=== PATIENT | female | born 1990 | race Two or more races ===

== ENCOUNTER 2016-08-20 21:44 | Emergency (ER) | payer MEDICAID ==
[2016-08-20] MEDS ORDERED: BUPIVACAINE 0.5% 10 ML SDV ONE (21:52)
[2016-08-20 21:55] VITALS: BP 101/97; PULSE 73; RESP 16; TEMP 97.9; O2SAT 95
--- NOTE | 2016-08-20 22:06 | EDPHY ---
H & P Chief Complaint Nursing Narrative: R index finger tip swelling/redness/pain x 1 day. no injury. Time Seen by Provider: 08/20/16 21:49 HPI/ROS: Chief complaint: Right finger pain and swelling HPI: 26-year-old female presenting with 1 day of pain and swelling at the base of her nail on her right index finger. No fevers or chills. No history of the same. ROS: 10 point Review of Systems is negative except as noted in the HPI. Physical exam: General: Awake alert no acute distress Right hand: She has got swelling and erythema on the ulnar aspect of her right index finger nail bed consistent with paronychia. There is no proximal erythema or tenderness. There is no pain along the flexor tendon sheath. Full range of motion without pain. Sensations intact. - Personal History LMP (Females 10-55): 8-14 Days Ago - Medical/Surgical History Hx Asthma: No Hx Chronic Respiratory Disease: No Hx Diabetes: No Hx Cardiac Disease: No Hx Renal Disease: No Hx Cirrhosis: No Hx Alcoholism: No Hx HIV/AIDS: No Hx Splenectomy or Spleen Trauma: No Other PMH: breast augmentation, oral surgery - Social History Smoking Status: Never smoked Constitutional: Initial Vital Signs Temperature (C) 36.6 C 08/20/16 21:53 Heart Rate 73 08/20/16 21:53 Respiratory Rate 16 08/20/16 21:53 Blood Pressure 101/97 H 08/20/16 21:53 O2 Sat (%) 95 08/20/16 21:53 O2 Delivery Mode Room Air Allergies/Adverse Reactions: No Known Allergies Allergy (Verified 08/20/16 21:51) Home Medications: Medication Instructions Recorded NK [No Known Home Meds] 08/20/16 Medical Decision Making Procedures: Procedure: Digital nerve block, indication is digit anesthesia for procedure. Patient was prepped with chlorhexidine Skin prep. 0.5% bupivacaine was infiltrated in the medial in lateral aspects for with a dorsal approach at the base of the proximal phalanx with blockage of both dorsal and volar nerves. Total of 1 mL was infiltrated. There were no complications. Procedure was performed by myself. Procedure: Paronychia drainage. The patient's paronychia was located on the right index finger. I obtained verbal consent from the patient to drain the abscess who was informed about the possibility of bleeding and pain. The abscess was incised with scissors and blunt dissection and a small amount of purulent drainage was expressed. The patient tolerated the procedure well. The procedure was performed by myself. Departure - Departure Disposition: Home, Routine, Self-Care Clinical Impression: Paronychia Condition: Good Instructions: Paronychia (ED) Additional Instructions: Warm soaks of the affected finger twice a day. Keep the area covered and clean. Follow up with primary care physician in 4-5 days for re-evaluation. Return Urgent Care for increasing pain, or spreading redness, fevers, chills, or any other concerns. Referrals: NONE *PRIMARY CARE P,. [Primary Care Provider] - As per Instructions [facility] [Outside] - As per Instructions
--- NOTE | 2016-08-20 22:21 | UCPHY ---
H & P Patient Type: Established Chief Complaint Nursing Narrative: R index finger tip swelling/redness/pain x 1 day. no injury. Time Seen by Provider: 08/20/16 21:49 HPI/ROS: Chief complaint: Right finger pain and swelling HPI: 26-year-old female presenting with 1 day of pain and swelling at the base of her nail on her right index finger. No fevers or chills. No history of the same. ROS: 10 point Review of Systems is negative except as noted in the HPI. Physical exam: General: Awake alert no acute distress Right hand: She has got swelling and erythema on the ulnar aspect of her right index finger nail bed consistent with paronychia. There is no proximal erythema or tenderness. There is no pain along the flexor tendon sheath. Full range of motion without pain. Sensations intact. - Personal History LMP (Females 10-55): 8-14 Days Ago - Medical/Surgical History Hx Asthma: No Hx Chronic Respiratory Disease: No Hx Diabetes: No Hx Cardiac Disease: No Hx Renal Disease: No Hx Cirrhosis: No Hx Alcoholism: No Hx HIV/AIDS: No Hx Splenectomy or Spleen Trauma: No Other PMH: breast augmentation, oral surgery - Family History Significant Family History: No pertinent family hx - Social History Smoking Status: Never smoked Constitutional: Initial Vital Signs Temperature (C) 36.6 C 08/20/16 21:53 Heart Rate 73 08/20/16 21:53 Respiratory Rate 16 08/20/16 21:53 Blood Pressure 101/97 H 08/20/16 21:53 O2 Sat (%) 95 08/20/16 21:53 O2 Delivery Mode Room Air Allergies/Adverse Reactions: No Known Allergies Allergy (Verified 08/20/16 21:51) Home Medications: Medication Instructions Recorded NK [No Known Home Meds] 08/20/16 Medical Decision Making Procedures: Procedure: Digital nerve block, indication is digit anesthesia for procedure. Patient was prepped with chlorhexidine Skin prep. 0.5% bupivacaine was infiltrated in the medial in lateral aspects for with a dorsal approach at the base of the proximal phalanx with blockage of both dorsal and volar nerves. Total of 1 mL was infiltrated. There were no complications. Procedure was performed by myself. Procedure: Paronychia drainage. The patient's paronychia was located on the right index finger. I obtained verbal consent from the patient to drain the abscess who was informed about the possibility of bleeding and pain. The abscess was incised with scissors and blunt dissection and a small amount of purulent drainage was expressed. The patient tolerated the procedure well. The procedure was performed by myself. Departure - Departure Disposition: Home, Routine, Self-Care Clinical Impression: Paronychia Condition: Good Instructions: Paronychia (ED) Additional Instructions: Warm soaks of the affected finger twice a day. Keep the area covered and clean. Follow up with primary care physician in 4-5 days for re-evaluation. Return Urgent Care for increasing pain, or spreading redness, fevers, chills, or any other concerns. Referrals: [facility] [Outside] - As per Instructions NONE *PRIMARY CARE P,. [Primary Care Provider] - As per Instructions - PQRS PQRS Measurement: NA
== END 2016-08-20 22:37 | disposition home or self-care (01) ==
LOC: CED 21:44
DX: L03.011 Cellulitis of right finger (principal)
CPT/HCPCS: G0463-PO

== ENCOUNTER 2017-01-23 16:52 | Emergency (ER) | payer MEDICAID ==
[2017-01-23 17:06] VITALS: RESP 18; TEMP 98
[2017-01-23] MEDS ORDERED: METOCLOPRAMIDE 10 MG/2 ML VIAL IVP ONE (17:10)
[2017-01-23] MEDS ORDERED: NS 1,000 ML IV ONE (17:10)
--- NOTE | 2017-01-23 17:12 | EDPHY ---
H & P Stated Complaint: c/o N/V/MICHELLE since last pm. Time Seen by Provider: 01/23/17 16:56 HPI/ROS: CHIEF COMPLAINT: Nausea, vomiting, diarrhea headache History by patient HISTORY OF PRESENT ILLNESS: 26-year-old woman who is otherwise healthy presents complaining of 24 hours of nausea, vomiting and diarrhea. Patient states she has vomited at least 8 times. She has had 1 episode of watery, nonbloody diarrhea. She also complains of a bilateral headache behind her eyes which she feels is due to being dehydrated but states she also has a history of migraines but this does not feel severe as her usual migraines. Sometimes with her migraines she loses vision in her left eye. She denies any focal numbness or weakness. She denies any abdominal pain. She denies any fever. She denies any dysuria, urgency or frequency. She denies . REVIEW OF SYSTEMS: As in HPI, and all other systems reviewed and are negative Source: Patient - Personal History LMP (Females 10-55): Now Current Tetanus Diphtheria and Acellular Pertussis (TDAP): Yes - Medical/Surgical History Hx Asthma: No Hx Chronic Respiratory Disease: No Hx Diabetes: No Hx Cardiac Disease: No Hx Renal Disease: No Hx Cirrhosis: No Hx Alcoholism: No Hx HIV/AIDS: No Hx Splenectomy or Spleen Trauma: No Other PMH: breast augmentation, oral surgery - Social History Smoking Status: Never smoked - Physical Exam Exam: General Appearance: Alert, nontoxic-appearing. Eyes: Pupils equal and round no pallor or injection. ENT, Mouth: Mucous membranes moist. Respiratory: Normal, effort, lungs are clear to auscultation. No wheezes, rales or rhonchi. Cardiovascular: Regular rate and rhythm. S1, S2, no murmurs, gallops or rubs appreciated Gastrointestinal: Abdomen is soft and nontender, no masses, bowel sounds normal. Back: No CVA tenderness, no bony tenderness Neurological: Awake, alert and oriented x 3, no pronator drift, normal gait, no pronator drift Skin: Warm and dry, no rashes. Musculoskeletal: No deformities or tenderness. Extremitie:s full range of motion, no edema Psychiatric: Patient has normal affect, there is no agitation. Constitutional: Initial Vital Signs Temperature (C) 36.6 C 01/23/17 17:01 Heart Rate 78 01/23/17 17:01 Respiratory Rate 18 01/23/17 17:01 Blood Pressure 105/80 01/23/17 17:01 O2 Sat (%) 94 01/23/17 17:01 O2 Delivery Mode Room Air Allergies/Adverse Reactions: No Known Allergies Allergy (Verified 08/20/16 21:51) Home Medications: Medication Instructions Recorded NK [No Known Home Meds] 08/20/16 Medical Decision Making ED Course/Re-evaluation: [age] old woman presents with nausea, vomiting and diarrhea and headache. She has a benign exam and normal vital signs. She is afebrile there is no evidence of systemic toxicity. She was given a L of IV fluids along with Reglan and Benadryl. After the Reglan and she became very anxious and uncomfortable feeling. I suspect this is akisthetic reaction to the Reglan. She was given additional dose of Benadryl with some improvement. We discussed this and I have told her she should consider herself allergic to Reglan. Patient's labs were unremarkable and she was not . On re-evaluation she is improved. She is discharged home in stable condition. - Data Points Laboratory Results: Laboratory Results 01/23/17 17:10 01/23/17 17:10 01/23/17 01/23/17 01/23/17 17:10 17:10 17:10 WBC 2.94 10^3/uL L 10^3/uL (3.80-9.50) RBC 4.78 10^6/uL 10^6/uL (4.18-5.33) Hgb 14.7 g/dL g/dL (12.6-16.3) Hct 42.2 % % (38.0-47.0) MCV 88.3 fL fL (81.5-99.8) MCH 30.8 pg pg (27.9-34.1) MCHC 34.8 g/dL g/dL (32.4-36.7) RDW 12.4 % % (11.5-15.2) Plt Count 246 10^3/uL 10^3/uL (150-400) MPV 9.1 fL fL (8.7-11.7) Neut % (Auto) 51.7 % % (39.3-74.2) Lymph % (Auto) 31.3 % % (15.0-45.0) [place] % (Auto) 12.6 % % (4.5-13.0) Eos % (Auto) 3.4 % % (0.6-7.6) Baso % (Auto) 0.7 % % (0.3-1.7) Nucleat RBC Rel Count 0.0 % % (0.0-0.2) Absolute Neuts (auto) 1.52 10^3/uL L 10^3/uL (1.70-6.50) Absolute Lymphs (auto) 0.92 10^3/uL L 10^3/uL (1.00-3.00) Absolute Monos (auto) 0.37 10^3/uL 10^3/uL (0.30-0.80) Absolute Eos (auto) 0.10 10^3/uL 10^3/uL (0.03-0.40) Absolute Basos (auto) 0.02 10^3/uL 10^3/uL (0.02-0.10) Absolute Nucleated RBC 0.00 10^3/uL 10^3/uL (0-0.01) Immature Gran % 0.3 % % (0.0-1.1) Immature Gran # 0.01 10^3/uL 10^3/uL (0.00-0.10) Sodium 141 mEq/L mEq/L (134-144) Potassium 4.0 mEq/L mEq/L (3.5-5.2) Chloride 103 mEq/L mEq/L (97-110) Carbon Dioxide 27 mEq/l mEq/l (22-31) Anion Gap 11 mEq/L mEq/L (8-16) BUN 9 mg/dL mg/dL (7-23) Creatinine 0.7 mg/dL mg/dL (0.6-1.0) Estimated GFR > 60 Glucose 88 mg/dL mg/dL (70-100) Calcium 9.2 mg/dL mg/dL (8.5-10.4) Beta HCG, Qual NEGATIVE Medications Given: Discontinued Medications Diphenhydramine HCl (Benadryl Injection) 25 mg IVP EDNOW ONE Stop: 01/23/17 17:11 Last Admin: 01/23/17 17:22 Dose: 25 mg Diphenhydramine HCl (Benadryl Injection) 25 mg IVP EDNOW ONE Stop: 01/23/17 17:28 Last Admin: 01/23/17 17:34 Dose: 25 mg Sodium Chloride (Ns) 1,000 mls @ 0 mls/hr IV ONCE ONE; Wide Open PRN Reason: Protocol Stop: 01/23/17 17:11 Last Admin: 01/23/17 17:12 Dose: 1,000 mls Metoclopramide HCl (Reglan Injection) 10 mg IVP EDNOW ONE Stop: 01/23/17 17:11 Last Admin: 01/23/17 17:21 Dose: 10 mg Departure - Departure Disposition: Home, Routine, Self-Care Clinical Impression: Nausea vomiting and diarrhea Adverse reaction to antiallergic and antiemetic drugs Qualifiers: Encounter type: initial encounter Qualified Code(s): T45.0X5A - Adverse effect of antiallergic and antiemetic drugs, initial encounter Condition: Good Instructions: Acute Nausea and Vomiting (ED) Additional Instructions: You were seen by Dr. Meena Case today. Rest and drink plenty of fluids. Consider yourrself allergic to metoclopramide (Reglan), this is the medication that give you the anxious reaction. If this anxiety feeling comes back you may take [id number] diphenhydramine ( Benadryl) 25 mg by mouth to counteract the symptoms. Return for any worsening or new concerns. Referrals: NONE *PRIMARY CARE P,. [Primary Care Provider] - As per Instructions
[2017-01-23 17:18] LABS: % IMMATURE GRANULYOCYTES 0.3 % (0.0-1.1); ABSOLUTE IMMATURE GRANULOCYTES 0.01 10^3/uL (0.00-0.10); ADD DIFF? NO; ADD MORPH? NO; ADD SCAN? NO; ATYPICAL LYMPHOCYTE FLAG 20 (0-99); FRAGMENT RBC FLAG 0 (0-99); HEMATOCRIT 42.2 % (38.0-47.0); HEMOGLOBIN 14.7 g/dL (12.6-16.3); LEFT SHIFT FLG 0 (0-99); LIPEMIA HEMOLYSIS FLAG 90 (0-99); MEAN CELL HEMOGLOBIN 30.8 pg (27.9-34.1); MEAN CELL HEMOGLOBIN CONCENTR. 34.8 g/dL (32.4-36.7); MEAN CELL VOLUME 88.3 fL (81.5-99.8); MEAN PLATELET VOLUME 9.1 fL (8.7-11.7); PLATELET CLUMPS FLAG 0 (0-99); PLATELET COUNT 246 10^3/uL (150-400); RED BLOOD CELL COUNT 4.78 10^6/uL (4.18-5.33); RED CELL DISTRIBUTION WIDTH 12.4 % (11.5-15.2)
[2017-01-23 17:31] LABS: ANION GAP 11 mEq/L (8-16); CALCIUM 9.2 mg/dL (8.5-10.4); CARBON DIOXIDE 27 mEq/l (22-31); CHLORIDE 103 mEq/L (97-110); CREATININE 0.7 mg/dL (0.6-1.0); GLOMERULAR FILTRATION RATE > 60; GLUCOSE 88 mg/dL (70-100); SODIUM 141 mEq/L (134-144)
[2017-01-23 18:46] VITALS: BP 107/62; PULSE 78; O2SAT 95
== END 2017-01-23 18:45 | disposition home or self-care (01) ==
LOC: CED 16:52
DX: R11.2 Nausea with vomiting, unspecified (principal); T45.0X5A Adverse effect of antiallergic and antiemetic drugs, initial encounter; R19.7 Diarrhea, unspecified; E86.9 Volume depletion, unspecified
CPT/HCPCS: 80048-PO; 84703-PO; 85025-PO; 96374; J1200; J2765